=== PATIENT | female | born 1960 | race Hispanic/Latino ===

== ENCOUNTER 2016-09-08 07:16 | Day surgery (SDC) | payer BC ==
[2016-09-08] MEDS ORDERED: Lactated Ringer's 500 ML IV ONE (07:59)
[2016-09-08 08:18] VITALS: O2SAT 100
[2016-09-08] MEDS ORDERED: Propofol 10 mg/ml Inj (20 ML) ONE (09:22)
[2016-09-08 10:03] VITALS: TEMP 97
[2016-09-08 10:14] VITALS: BP 110/70; PULSE 63; RESP 17
== END 2016-09-08 15:22 | disposition home or self-care (01) ==
LOC: H.ENDO 07:16
PROVIDERS: ATTEND Internal Medicine Gastroenterology
DX: Z12.11 Encounter for screening for malignant neoplasm of colon (principal); E78.5 Hyperlipidemia, unspecified; K57.30 Diverticulosis of large intestine without perforation or abscess without bleeding; K64.0 First degree hemorrhoids; K30 Functional dyspepsia; K29.70 Gastritis, unspecified, without bleeding
CPT/HCPCS: 43239; 45378; 88305; J2001; J2704; J7120